=== PATIENT | female | born 1950 | race Caucasian/White ===

== ENCOUNTER → 2020-09-22 10:15 | Outpatient (CLI) | payer MEDICARE, SELFPAY ==
--- NOTE | 2020-09-22 11:02 | XR_ITS ---
PROCEDURE: XR CHEST 2V CLINICAL HISTORY: WEIGHT LOSS,EMPHYSEMA COMPARISON: No exams were available for comparison FINDINGS: The cardiomediastinal silhouette and pulmonary vascularity are within normal limits. COPD changes. Faint increased markings in the right lung base posteriorly suspicious for an area infiltrate. Approximately 50 percent wedging of T9 age indeterminate. Lumbar scoliosis convex left. IMPRESSION: Patchy infiltrate in the right lung base. Age indeterminate wedge compression changes of T9 Dictated by: Chris Mitchell MD 09/22/2020 11:41 Chris Mitchell MD in [place] 09/22/2020 11:41
[2020-09-22 11:13] LABS: Eosinophils % 1.2 % (0.1-12.0); Hematocrit 36.7 % (37.0-47.0); Hemoglobin 11.9 g/dL (12.2-16.2); Lymphocytes % 31.8 % (10-50); Mean Corpuscular HGB Conc 32.3 g/dL (31.8-35.4); Mean Corpuscular Hemoglobin 28.9 pg (27.0-31.2); Mean Corpuscular Volume 89.4 fl (81-99); Mean Platelet Volume 8.7 fl (7.4-10.4); Monocytes # 0.2 K/mm3 (0.1-1.0); Monocytes % 6.6 % (1.7-9.3); Neutrophils # 1.9 K/mm3 (1.8-7.8); Neutrophils % 59.4 % (37.0-80.0); Platelet Count 190 K/mm3 (142-424); Red Blood Count 4.11 M/mm3 (4.20-5.40); Red Cell Distribution Width 13.6 % (11.5-17.5); White Blood Count 3.3 K/mm3 (4.8-10.8)
[2020-09-22 12:11] LABS: Alanine Aminotransferase 5 U/L (12-78); Albumin/Globulin Ratio 1.5 (1.1-1.8); Alkaline Phosphatase 60 U/L (38-126); Anion Gap 5.4 mEq/L (5-15); Aspartate Amino Transferase 19 U/L (14-36); Bilirubin,Total 0.5 mg/dl (0.2-1.3); Blood Urea Nitrogen 17 mg/dl (7-17); Calcium 9.4 mg/dl (8.4-10.2); Carbon Dioxide 36 mmol/L (22.0-30.0); Chloride 102 mmol/L (98-107); Cholesterol 193 mg/dl (140-200); Estimated Glomerular Filt Rate 71 ml/min (>60); GFR (African American) 86 ML/MIN (>60); Globulin 2.7 g/dL (1.3-3.2); Glucose 83 mg/dl (74-100); HDL Cholesterol 65 mg/dl (40-60); Magnesium 2.3 mg/dl (1.6-2.3); Potassium 4.4 mmoL/L (3.5-5.1); Sodium 139 mmol/L (136-145); Total Protein,Serum 6.7 g/dl (6.3-8.2); Triglycerides 74 mg/dl (30-150); VLDL Cholesterol 15 mg/dL (0-40)
[2020-09-22 12:22] LABS: Direct LDL Cholesterol 98.22 mg/dL (100-129)
[2020-09-22 12:29] LABS: 25-OH Vitamin D, Total 15.8 ng/mL (30-100)
[2020-09-22 12:31] LABS: Free Thyroxine Index 2.7 ug/dL (5.93-13.13); T4 (Thyroxine) 8.3 ug/dl (5.53-11.0); Triiodothryronine (T3) Uptake 32 % (23.5-40.5)
[2020-09-22 12:44] LABS: Thyroid Stimulating Hormone 0.77 uIU/mL (0.465-4.68)
[2020-09-22 20:43] LABS: Vitamin B12 565 pg/mL (239-931)
== END ==
PROVIDERS: PCP Internal Medicine Adolescent Medicine; Visit Provider Internal Medicine Adolescent Medicine
DX: J43.1 Panlobular emphysema (principal); R63.4 Abnormal weight loss; E55.9 Vitamin D deficiency, unspecified; R74.8 Abnormal levels of other serum enzymes
CPT/HCPCS: 36415; 71046; 80053; 80061; 82306; 82607; 83735; 84436; 84443; 84479; 85025

== ENCOUNTER 2020-12-25 18:48 | Emergency (ER) | payer MEDICARE, SELFPAY ==
[2020-12-25 20:29] VITALS: BP 116/81; PULSE 68; RESP 20; TEMP 36.7; O2SAT 99
== END 2020-12-25 20:30 | disposition left against medical advice (07) ==
LOC: UTC 18:51 → ER 19:42
PROVIDERS: Emergency Provider Emergency Medicine; PCP Internal Medicine Adolescent Medicine
DX: Z53.21 Procedure and treatment not carried out due to patient leaving prior to being seen by health care provider (principal)
CPT/HCPCS: G0463; 99211

== ENCOUNTER 2020-12-26 12:27 | Emergency (ER) | payer MEDICARE, SELFPAY ==
[2020-12-26] VITALS (10 sets, daily range): BP systolic 86–110; BP diastolic 50–75; PULSE 66–88; RESP 16–22; TEMP 36.6–37; O2SAT 97–100; BMI 20.3
--- NOTE | 2020-12-26 12:51 | HMH.EDGENADL ---
ED Disposition Clinical Impression: COVID-19 virus infection Disposition: Home, Self-Care Condition on Discharge: Good Instructions: DI for COVID-19 (Suspected or Confirmed ) Additional Instructions: Tylenol for pain or fever. Rest and drink plenty of fluids. COVID-19 Isolation: Isolate yourself for a MINIMUM of 10 days: What to do: Monitor your symptoms. If you have an emergency warning sign (including trouble breathing), seek emergency medical care immediately. Stay in a separate room from other household members, if possible. Use a separate bathroom, if possible. Avoid contact with other members of the household and pets. Don?t share personal household items, like cups, towels, and utensils. Wear a mask when around other people if able. You can be around others AFTER: 10 days since symptoms first appeared AND 24 hours with no fever without the use of fever-reducing medications AND Other symptoms of COVID-19 are improving Referrals: Maulik Tapia MD [Primary Care Provider] - - Critical Care Critical Care Time: No Attestation: On 12/26/20, the high probability of a clinically significant, sudden or life threatening deterioration of the following system(s) required my full and direct attention, intervention and personal management. The time I documented below is in addition to time spent performing reported procedures but includes the following listed in this critical care notation. Medical Decision Making - Phong Inquiry Pt receiving controlled substance: No Vital Signs: 12/26/20 12:29 12/26/20 13:30 Temperature 98.6 F Temperature Source Oral Pulse Rate 70 Pulse Rate [Radial] 68 Respiratory Rate 22 17 Blood Pressure 96/60 L Blood Pressure [Right Arm] 90/50 L Blood Pressure Mean 66 Blood Pressure Mean [Right Arm] 63 Blood Pressure Position [Right Arm] Sitting 02 Sat by Pulse Oximetry 98 100 Oxygen Delivery Method Nasal Cannula Oxygen Flow Rate (LPM) 2 - Lab Data Lab Results 12/26/20 12:53: SARS-CoV-2 (PCR) Detected A, Influenza A Untype (PCR) Not detected, Influenza Type B (PCR) Not detected 12/26/20 13:33: WBC 3.8 L, RBC 4.37, Hgb 12.5, Hct 40.3, MCV 92.2, MCH 28.7, MCHC 31.1 L, RDW 12.6, Plt Count 191, MPV 7.5, Neut % (Auto) 68.7, Lymph % (Auto) 21.6, [place] % (Auto) 8.6, Eos % (Auto) 0.1, Baso % (Auto) 1.0, Neut # (Auto) 2.6, Lymph # (Auto) 0.8, [place] # (Auto) 0.3, Eos # (Auto) 0.0, Baso # (Auto) 0.0 Result diagrams: 12/26/20 13:33 Orders (Tests/Meds): ORDERS Category Date Time Status XR chest portable Stat Exams 12/26/20 13:09 Ordered Comprehensive Metabolic Panel Stat Lab 12/26/20 13:33 Received Lactic Acid Stat Lab 12/26/20 13:33 Received Blood Culture Stat Micro 12/26/20 13:33 Received Medical Decision Narrative: Discussed monoclonal antibody therapy with patient and son. They are agreeable. General Adult HPI - General Stated complaint: covid exposure,cough,fever,symptoms Time Seen by Provider: 12/26/20 12:51 - History of Present Illness HPI narrative: History obtained from patient's son. The patient has dementia. He states that she has been exposed to Covid, 3 persons in the household out of 7 have tested positive, and she has symptoms. He says for the past couple days she has had a cough with headaches, chest congestion, her lungs sound full , and a fever between 100 and 101 degrees. She has COPD and is on oxygen continuously. She uses an inhaler twice a day. She is treated for hypothyroidism. She does not have heart disease or diabetes. She is a former smoker. He states that she was here last night but walked out without getting tested because of her dementia. She has not been vaccinated against COVID-19. Son states we're not big on vaccines in our family . - Related Data Allergies Allergy/AdvReac Type Severity Reaction Status Date / Time Penicillins Allergy Verified 12/26/20 13:04 [facility] History
[2020-12-26 13:08] LABS: Influenza A, PCR Not Detected (NotDetected); Influenza B, PCR Not Detected (NotDetected)
--- NOTE | 2020-12-26 13:09 | XR_ITS ---
PROCEDURE: XR CHEST PORTABLE CLINICAL HISTORY: COUGH COMPARISON: CR XR CHEST 2V from 09/22/2020 FINDINGS: The cardiomediastinal silhouette and pulmonary vascularity are within normal limits. The lungs are clear without infiltrates, suspicious nodules, or pleural effusions. No acute bony abnormalities. IMPRESSION: No acute findings. Dictated by: Chris Mitchell MD 12/26/2020 15:57 Chris Mitchell MD in [place] 12/26/2020 15:57
[2020-12-26 13:36] LABS: Coronavirus 19, PCR Detected (NotDetected)
[2020-12-26 13:42] LABS: Eosinophils % 0.1 % (0.1-12.0); Hematocrit 40.3 % (37.0-47.0); Hemoglobin 12.5 g/dL (12.2-16.2); Lymphocytes # 0.8 K/mm3 (0.7-4.5); Lymphocytes % 21.6 % (10-50); Mean Corpuscular HGB Conc 31.1 g/dL (31.8-35.4); Mean Corpuscular Hemoglobin 28.7 pg (27.0-31.2); Mean Corpuscular Volume 92.2 fl (81-99); Mean Platelet Volume 7.5 fl (7.4-10.4); Monocytes # 0.3 K/mm3 (0.1-1.0); Monocytes % 8.6 % (1.7-9.3); Neutrophils # 2.6 K/mm3 (1.8-7.8); Neutrophils % 68.7 % (37.0-80.0); Platelet Count 191 K/mm3 (142-424); Red Blood Count 4.37 M/mm3 (4.20-5.40); Red Cell Distribution Width 12.6 % (11.5-17.5); White Blood Count 3.8 K/mm3 (4.8-10.8)
[2020-12-26 13:50] LABS: Chloride 102 mmol/L (98-107); Potassium 4.4 mmoL/L (3.5-5.1); Sodium 138 mmol/L (136-145)
[2020-12-26 13:52] LABS: Alanine Aminotransferase 12 U/L (12-78); Aspartate Amino Transferase 33 U/L (14-36); Blood Urea Nitrogen 17 mg/dl (7-17); Creatinine Clearance Estimated 42 mL/min (50-200); Estimated Glomerular Filt Rate 55 ml/min (>60); GFR (African American) 66 ML/MIN (>60); Lactic Acid 0.7 mmol/L (0.7-2.1)
[2020-12-26 13:53] LABS: Albumin/Globulin Ratio 1.3 (1.1-1.8); Alkaline Phosphatase 65 U/L (38-126); Anion Gap 11.4 mEq/L (5-15); Bilirubin,Total 0.2 mg/dl (0.2-1.3); Carbon Dioxide 29 mmol/L (22.0-30.0); Globulin 3.2 g/dL (1.3-3.2); Glucose 81 mg/dl (74-100); Total Protein,Serum 7.2 g/dl (6.3-8.2)
== END 2020-12-26 16:49 | disposition home or self-care (01) ==
PROVIDERS: Emergency Provider Emergency Medicine; PCP Internal Medicine Adolescent Medicine
DX: U07.1 COVID-19 (principal); J44.9 Chronic obstructive pulmonary disease, unspecified; Z99.81 Dependence on supplemental oxygen; E03.9 Hypothyroidism, unspecified; Z87.891 Personal history of nicotine dependence
CPT/HCPCS: 71045; 80053; 83605; 85025; 87040; 96365; 99283; C9803; U0003; U0005

== ENCOUNTER 2022-03-25 15:54 | Inpatient (IN) | payer MEDICARE, SELFPAY ==
[2022-03-25 16:28] VITALS: BP 138/53; PULSE 88; RESP 18; TEMP 37.6; O2SAT 92; BMI 20.5
--- NOTE | 2022-03-25 16:41 | XR_ITS ---
PROCEDURE INFORMATION: Exam: XR Chest Exam date and time: 03/25/2022 4:44 PM Age: 71 years old Clinical indication: Shortness of breath; Additional info: Jones TECHNIQUE: Imaging protocol: Radiologic exam of the chest. Views: 1 view. COMPARISON: CR XR CHEST PORTABLE 12/26/2020 1:20 PM FINDINGS: Lungs: Hazy airspace opacity in left lower lobe concerning for developing pneumonia. Pleural spaces: Unremarkable. No pleural effusion. No pneumothorax. Heart/Mediastinum: Unremarkable. No cardiomegaly. Bones/joints: Unremarkable. IMPRESSION: Hazy airspace opacity in left lower lobe concerning for developing pneumonia.
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
[2022-03-25 18:20] VITALS: PULSE 83; PULSE 84; RESP 16; O2SAT 85
--- NOTE | 2022-03-25 18:21 | ECG_ITS ---
APPROVED REPORT Exam: Resting ECG HR:89 bpm ECG Measurements Heart Rate 89 AXES [place] 173 P 74 QRSd 79 QRS 16 QT 339 T 36 QTc 386 Conclusion SINUS RHYTHM NORMAL ECG UNCONFIRMED REPORT Electronically signed by : Maulik Tapia MD 03/25/2022 20:15:06
[2022-03-25 18:40] VITALS: O2SAT 92
--- NOTE | 2022-03-25 18:48 | PC.NURSE ---
Pt instructed on d
--- NOTE | 2022-03-25 18:49 | PC.NURSE ---
Pt instructed on production of sputum but unable to produce specimen at this time. Cup at bedside. Pt also removed IV rac. New one placed to RFA.
[2022-03-25 19:36] LABS: Coronavirus 19, PCR Not Detected (NotDetected); Influenza A, PCR Not Detected (NotDetected); Influenza B, PCR Not Detected (NotDetected)
[2022-03-25 19:50] LABS: Basophils # 0.1 K/mm3 (0-0.2); Basophils % 0.5 % (0.1-2.0); Eosinophils # 0.1 K/mm3 (0.0-0.4); Eosinophils % 1.1 % (0.1-12.0); Hematocrit 35.3 % (37.0-47.0); Hemoglobin 11.2 g/dL (12.2-16.2); Lymphocytes # 1.1 K/mm3 (0.7-4.5); Lymphocytes % 10.2 % (10-50); Mean Corpuscular HGB Conc 31.8 g/dL (31.8-35.4); Mean Corpuscular Hemoglobin 28.7 pg (27.0-31.2); Mean Corpuscular Volume 90.4 fl (81-99); Mean Platelet Volume 7.4 fl (7.4-10.4); Monocytes # 0.4 K/mm3 (0.1-1.0); Monocytes % 3.4 % (1.7-9.3); Neutrophils # 9.1 K/mm3 (1.8-7.8); Neutrophils % 84.7 % (37.0-80.0); Platelet Count 342 K/mm3 (142-424); Red Blood Count 3.91 M/mm3 (4.20-5.40); Red Cell Distribution Width 13.3 % (11.5-17.5); White Blood Count 10.8 K/mm3 (4.8-10.8)
[2022-03-25 19:53] LABS: Chloride 99 mmol/L (98-107); Sodium 139 mmol/L (136-145)
[2022-03-25 19:56] LABS: Blood Urea Nitrogen 11 mg/dl (7-17); Calcium 8.7 mg/dl (8.4-10.2); Carbon Dioxide 32 mmol/L (22.0-30.0); Creatinine Clearance Estimated 41 mL/min (50-200); Estimated Glomerular Filt Rate 82 ml/min (>60); GFR (African American) 100 ML/MIN (>60); Glucose 81 mg/dl (74-100)
[2022-03-25 20:00] VITALS: BP 111/65; PULSE 86; RESP 18; TEMP 37.6; O2SAT 95
[2022-03-25 20:02] LABS: C-Reactive Protein 120.6 mg/L (0-4)
[2022-03-25 20:03] LABS: Anion Gap 10.9 mEq/L (5-15); Potassium 2.9 mmoL/L (3.5-5.1)
[2022-03-25 20:06] LABS: Lactic Acid 0.9 mmol/L (0.7-2.1)
--- NOTE | 2022-03-25 20:06 | PC.NURSE ---
03/25/222005 pts son was called regarding pt confused and requesting a phone to call her son, pt confused to place and time, attempting to pull at iv's and getting out of bed. son spoke with pt on the phone, son then asked if we could get her some ativan ordered, son stated that they told him earlier in the day that pt could get some ativan ordered, dr goldberg was called and asked per son request, no new orders for ativan at this time given due to pt with respiratory issues.
[2022-03-25 20:42] LABS: Mycoplasma Pneumo IGM (Rapid) Non-Reactive (Non-Reactiv)
[2022-03-26] VITALS: BP 109/63; PULSE 81; RESP 17; TEMP 36.7; O2SAT 92
[2022-03-26 03:27] VITALS: BP 120/74; PULSE 84; RESP 18; TEMP 36.9; O2SAT 94
--- NOTE | 2022-03-26 04:27 | PC.NURSE ---
pt in no acute distress, no changes from previous assessment, vss, lung sounds diminished, 02 sats 94% on 2L 02 pnc, pt is alert to self, pt is confused to place and time, pt with bed alarm in use, pt attempts to ambulate on own several times, no other issues or concerns at this time, pt still has non productive cough
[2022-03-26 05:27] VITALS: BMI 21.2
[2022-03-26 06:45] LABS: Chloride 106 mmol/L (98-107); Sodium 139 mmol/L (136-145)
[2022-03-26 06:46] LABS: Potassium 4.1 mmoL/L (3.5-5.1)
[2022-03-26 06:49] LABS: Anion Gap 5.1 mEq/L (5-15); Blood Urea Nitrogen 6 mg/dl (7-17); Calcium 8.2 mg/dl (8.4-10.2); Carbon Dioxide 32 mmol/L (22.0-30.0); Creatinine Clearance Estimated 42 mL/min (50-200); Estimated Glomerular Filt Rate 121 ml/min (>60); GFR (African American) 147 ML/MIN (>60); Glucose 114 mg/dl (74-100)
--- NOTE | 2022-03-26 07:30 | HMH.PHAINT1 ---
Pharmacy Intervention Comments: MEDICATION RECONCILIATION COMPLETED ON PATIENT USING EXTERNAL FILL HISTORY FROM PHARMACY. -STEVE NARAYAN, TRIPPD
[2022-03-26 08:00] VITALS: BP 99/63; PULSE 66; RESP 16; TEMP 36.5; O2SAT 98
--- NOTE | 2022-03-26 08:44 | PC.NURSE ---
Attempted to collect sputum but patient unable to produce at this time; specimen cup at bedside
[2022-03-26 08:52] LABS: Benzodiazepines Screen,Urine Negative ng/ml (<200)
[2022-03-26 08:53] LABS: Amphetamine/Metha Screen,Urine Negative ng/ml (<1000)
[2022-03-26 08:54] LABS: Barbiturates Screen,Urine Negative ng/ml (<200); Cannabinoid Screen,Urine Negative ng/ml (<50)
[2022-03-26 08:55] LABS: Cocaine Screen,Urine Negative ng/ml (<300)
[2022-03-26 08:56] LABS: Methadone Screen,Urine Negative ng/ml (<300); Opiate Screen,Urine Negative ng/ml (<300)
[2022-03-26 08:57] LABS: Phencyclidine Screen,Urine Negative ng/ml (<25)
--- NOTE | 2022-03-26 09:10 | EXP.ACUTE.PN ---
Subjective *Date: 03/26/22 *Time: 09:10 Interval history: Patient did fairly well overnight. Admission labs showed hypokalemia and she was given oral potassium and potassium containing fluids overnight and her potassium is now normal. She is breathing well. She has no complaints but is fairly demented. Medical Exam Vital signs and Labs for Last 24 Hours: Vital Signs Temp Pulse Pulse Resp BP Pulse Ox FiO2 03/26/22 08:00 2 03/26/22 03:27 98.5 F 84 18 120/74 94 L 03/25/22 18:40 92 L 03/25/22 20:00 95 03/26/22 00:00 98.1 F 81 17 109/63 L 92 L 03/25/22 20:00 99.6 F 86 18 111/65 95 03/25/22 18:20 84 16 03/25/22 18:20 84 03/25/22 18:20 83 03/25/22 18:20 85 L 03/25/22 16:28 99.6 F 88 18 138/53 L 92 L Intake and Output 03/25/22 03/26/22 03/26/22 19:59 03:59 11:59 Intake Total 240 / 1841 120 / 1841 1481 / 1841 Output Total 0 / 400 400 / 400 Balance 240 / 1441 120 / 1441 1081 / 1441 Intake: Intake, Oral Amount 240 / 360 120 / 360 Intake, Total IV Amount 1481 / 1481 D5W/0.45% NaCl w/40mEq KCl 1, 1481 / 1481 000 ml @ 125 mls/hr IV .Q8H [facility] Rx#:[id number] Output: Output, Urine Amount 0 / 400 400 / 400 Other: Number of Voids 1 Number of Unmeasured Voids 1 Weight 112 lb 1 oz 115 lb Patient Weight 03/26/22 11:59 Weight 115 lb Laboratory Results - last 24 hr 03/25/22 19:27: Lactate 0.9 03/25/22 19:27: WBC 10.8, RBC 3.91 L, Hgb 11.2 L, Hct 35.3 L, MCV 90.4, MCH 28.7, MCHC 31.8, RDW 13.3, Plt Count 342, MPV 7.4, Neut % (Auto) 84.7 H, Lymph % (Auto) 10.2, [place] % (Auto) 3.4, Eos % (Auto) 1.1, Baso % (Auto) 0.5, Neut # (Auto) 9.1 H, Lymph # (Auto) 1.1, [place] # (Auto) 0.4, Eos # (Auto) 0.1, Baso # (Auto) 0.1 03/25/22 19:27: Sodium 139, Potassium 2.9 L*, Chloride 99, Carbon Dioxide 32 H, Anion Gap 10.9, BUN 11, Creatinine 0.70, Estimated Creat Clear 41, Estimated GFR 82, Est GFR ( Amer) 100, Glucose 81, Calcium 8.7, C-Reactive Protein 120.6 H 03/25/22 19:27: Mycoplasma pneumon IgM Non-reactive 03/25/22 19:27: SARS-CoV-2 (PCR) Not detected, Influenza A Untype (PCR) Not detected, Influenza Type B (PCR) Not detected 03/26/22 06:07: Sodium 139, Potassium 4.1 D, Chloride 106, Carbon Dioxide 32 H, Anion Gap 5.1, BUN 6 L D, Creatinine 0.50 L D, Estimated Creat Clear 42, Estimated GFR 121, Est GFR ( Amer) 147 D, Glucose 114 H D, Calcium 8.2 L 03/26/22 08:35: Urine Opiates Screen Negative, Urine Methadone Screen Negative, Ur Barbituates Screen Negative, Ur Phencyclidine Scrn Negative, Ur Amphetamines Screen Negative, U Benzodiazepines Scrn Negative, Urine Cocaine Screen Negative, U Marijuana (THC) Screen Negative I & O for Labs for Last 24 Hours: Intake & Output 03/23/22 03/24/22 03/25/22 03/26/22 11:59 11:59 11:59 11:59 Intake Total 1841 / 1841 Output Total 400 / 400 Balance 1441 / 1441 Weight 115 lb Comment:: Resting comfortably. Lungs have fairly good air entry bilaterally. Continues have crackles in the right base. Heart rate regular. Skin turgor is improving. Assessment and Plan *Assessment and plan (1) Community acquired pneumonia: Status: Acute Category: Medical Code(s): J18.9 - Pneumonia, unspecified organism (2) Dehydration: Status: Acute Category: Medical Code(s): E86.0 - Dehydration (3) Hypothyroidism (acquired): Status: Acute Category: Medical Code(s): E03.9 - Hypothyroidism, unspecified (4) Senile dementia: Status: Acute Category: Medical Code(s): F03.90 - Unspecified dementia, unspecified severity, without behavioral disturbance, psychotic disturbance, mood disturbance, and anxiety (5) Panlobular emphysema: Status: Acute Category: Medical Code(s): J43.1 - Panlobular emphysema (6) Hypokalemia: Status: Acute Category: Medical Code(s):
[2022-03-26 10:58] VITALS: BMI 21.1
--- NOTE | 2022-03-26 11:37 | HMH.OTEV ---
OT Inpatient Evaluation Rehab OT IP Evaluation Start: 03/26/22 08:11 Freq: ONCE Status: Active Protocol: Document 03/26/22 11:28 CURTIS (Rec: 03/26/22 11:37 FORRESTKATHY [id number]) Rehab OT IP Assessment Subjective History Patient has had 1 to 2 weeks of cough and congestion. Has been seen at the [place] emergency department with acute bronchopneumonia, was given a macrolide antibiotics. Flu and COVID testing was negative, was hypotensive but encouraged to do p.o. fluids and was discharged home. She is not much better, appeared at my office today for an appointment, found to have 84% O2 saturation on room air, blood pressure in the low 100s, with 1 pound weight loss in the past week per my scales and crackles in the left middle lung field. Admitted to hospital for community-acquired pneumonia with failed outpatient therapy . Patient lives at home with son . Patient independent with ADLs and fx'l mobility prior to hospitalization. Subjective I can get up. Patient completed LB drsg at [facility] I. Patient completed transfers, ambulation and bed mobility I. Objective Patient Orientation Person,Name,Year Upper Extremity Gross ROM WFL Bed Mobility bed mobility - supine/sit Assist Level Independent Transfer Training Sit/Stand/Pivot Transfer Assist Level Independent Chair Transfer Ability Independent Chair Transfer Technique Sit to/from Ambulatory Rehab OT IP prob,goals,plan Problems Date of Evaluation: 03/26/22 Rehab Potential Rehab Potential Innapropriate for Skilled Therapy Discharge Plan OT Discharge Plan Patient appears to be at baseline. d/c to home with son after medical d/c from [facility]. Eval Complexity Eval Charge Cod
--- NOTE | 2022-03-26 11:39 | HMH.PTEV ---
Physical Therapy Evaluation Rehab PT IP Evaluation Start: 03/26/22 08:10 Freq: ONCE Status: Active Protocol: Document 03/26/22 09:10 JOSE (Rec: 03/26/22 11:39 PHOCLARIBEL [id number]) Subjective/History History History 71 yowf adm to [facility] with PNA. She reports she lives with son , 1-2 steps to enter the home, and she is generally independent with all mobility without an AD. Subjective Subjective Currently she has no c/o. Rehab PT IP Eval Objective Appearance Patient Behavior Appropriate Patient Orientation Person,Place Difficulty following instructions none Speech Pattern Clear Ambulation Patient Able to Ambulate Yes Ambulation Observation IP General Gait Pattern Observation No Deviations/Normal Ambulation Distance (feet) 75 Ambulation Assistive Device None Ambulation Ability Independent Balance Ability to Arise Able, uses arms to help Sitting Balance Steady, safe Standing Balance Narrow stance w/o support Dynamic Sitting Balance Ability Good Dynamic Standing Balance Ability Good Transfers Bed Transfer Ability Independent Chair Transfer Ability Independent Sit to Stand Bed Transfer Ability Independent Sit to Stand Chair Transfer Ability Independent ROM All Extremities PT ROM Status WFL MMT All Extremities PT MMT WFL Rehab PT IP prob,goals,plan Problems Date of Evaluation: 03/26/22 Discharge Plan PT Discharge Plan Pt is currently independent with all mobility and ambulation. No current inpatient therapy needs. G -code Required No Eval Complexity Eval Charge Codes 47054 - Moderate Complexity PHYSICIAN CERTIFICATION: I certify the specified therapy services for Leticia Castillo are required, authorized, and reviewed every 30 days.
--- NOTE | 2022-03-26 11:41 | HMH.OTEV ---
OT Inpatient Evaluation Rehab OT IP Evaluation Start: 03/26/22 08:11 Freq: ONCE Status: Active Protocol: Document 03/26/22 11:28 CURTIS (Rec: 03/26/22 11:37 FORRESTKATHY [id number]) Rehab OT IP Assessment Subjective History Patient has had 1 to 2 weeks of cough and congestion. Has been seen at the [place] emergency department with acute bronchopneumonia, was given a macrolide antibiotics. Flu and COVID testing was negative, was hypotensive but encouraged to do p.o. fluids and was discharged home. She is not much better, appeared at my office today for an appointment, found to have 84% O2 saturation on room air, blood pressure in the low 100s, with 1 pound weight loss in the past week per my scales and crackles in the left middle lung field. Admitted to hospital for community-acquired pneumonia with failed outpatient therapy . Patient lives at home with son . Patient independent with ADLs and fx'l mobility prior to hospitalization. Subjective I can get up. Patient completed LB drsg at [facility] I. Patient completed transfers, ambulation and bed mobility I. Objective Patient Orientation Person,Name,Year Upper Extremity Gross ROM WFL Bed Mobility bed mobility - supine/sit Assist Level Independent Transfer Training Sit/Stand/Pivot Transfer Assist Level Independent Chair Transfer Ability Independent Chair Transfer Technique Sit to/from Ambulatory Rehab OT IP prob,goals,plan Problems Date of Evaluation: 03/26/22 Rehab Potential Rehab Potential Innapropriate for Skilled Therapy Discharge Plan OT Discharge Plan Patient appears to be at baseline. d/c to home with son after medical d/c from [facility] [place]. Eval Complexity Eval Charge Cod
[2022-03-26 12:00] VITALS: BP 155/90; PULSE 88; RESP 16; TEMP 36.3; O2SAT 91
--- NOTE | 2022-03-26 15:08 | CARE MANAGER ---
Attempted multiple times to reach son today. Left message on his VM, but he has not called back. Number on chart was attempted first and patient's daughter answered and gave me son's number...[phone], which is where I left the message.
[2022-03-26 16:00] VITALS: BP 145/93; PULSE 101; RESP 20; TEMP 36.3; O2SAT 92
--- NOTE | 2022-03-26 18:49 | PC.NURSE ---
Pt is alert to self. She's been very restless and anxious throughout the shift. She's ambulated in the halls with assist x1 and tolerated well. She keeps requesting to see her who has previously. She removed her IV in the am, new IV placed to right wrist and wrapped with coban to encourage patient to leave alone. Appetite has been poor with her refusing all meals. Her son was notified of patients restlessness and agitation. He stated he would be in later to see her. Dr Tapia notified. 0.5 mg of risperdol x1 ordered and administered with no results. Dr Tapia called to check on patient and notified of result. 25 mg of seroquel po x1 ordered. Will fax order to pharmacy. Pt is currently sitting at the nurses station talking with RN's.
[2022-03-26 20:00] VITALS: BP 120/91; PULSE 110; RESP 20; TEMP 36.7; O2SAT 93
[2022-03-27] VITALS (7 sets, daily range): BP systolic 107–126; BP diastolic 67–81; PULSE 62–102; RESP 16–22; TEMP 36.7–37.6; O2SAT 91–97; BMI 21.3
--- NOTE | 2022-03-27 07:00 | PC.NURSE ---
Pt A/Ox1. Pt lucero been pleasantly confused t/o shift. Pt sat with nursing staff at nurse station at beginning of shift. Pt became tired and agreed to go to her room to sleep. Pt slept majority of night. Updated son (Wolfgang) on pt care. He stated he was not able to make it last tonight but would come today. Also states concern about pt not eating. Pt had no c.o voiced to staff. Ambulates to BR and in hallway with standby assist. Call light within reach. Bed alarm in place for pt safety.
[2022-03-27 08:20] LABS: Basophils # 0.1 K/mm3 (0-0.2); Eosinophils # 0.1 K/mm3 (0.0-0.4); Eosinophils % 1.9 % (0.1-12.0); Hematocrit 37.3 % (37.0-47.0); Lymphocytes % 15.9 % (10-50); Mean Corpuscular HGB Conc 32.1 g/dL (31.8-35.4); Mean Corpuscular Hemoglobin 28.4 pg (27.0-31.2); Mean Corpuscular Volume 88.4 fl (81-99); Mean Platelet Volume 7.9 fl (7.4-10.4); Monocytes # 0.3 K/mm3 (0.1-1.0); Monocytes % 4.8 % (1.7-9.3); Neutrophils % 76.5 % (37.0-80.0); Platelet Count 406 K/mm3 (142-424); Red Blood Count 4.22 M/mm3 (4.20-5.40); Red Cell Distribution Width 13.7 % (11.5-17.5); White Blood Count 6.6 K/mm3 (4.8-10.8)
[2022-03-27 08:36] LABS: Blood Urea Nitrogen 5 mg/dl (7-17); Calcium 9.2 mg/dl (8.4-10.2); Carbon Dioxide 31 mmol/L (22.0-30.0); Chloride 106 mmol/L (98-107); Creatinine Clearance Estimated 42 mL/min (50-200); Estimated Glomerular Filt Rate 82 ml/min (>60); GFR (African American) 100 ML/MIN (>60); Glucose 101 mg/dl (74-100); Sodium 144 mmol/L (136-145)
--- NOTE | 2022-03-27 09:38 | EXP.ACUTE.PN ---
Subjective *Date: 03/27/22 *Time: 09:38 Interval history: Overnight patient did well from a respiratory standpoint. She is not requiring oxygen. PT and OT evaluation was good with no need for skilled rehabilitation services. She has been extremely anxious and has been wandering around the nursing unit and is actually tried to leave a couple of times. Her son was contacted and stated that he would come in and be with her but he has not appeared as of yet after 24 hours of notification. We gave her Seroquel last night and nursing staff reported the seem to help her little bit as far as getting some sleep but it certainly did not over sedate her. This morning she does know that I am her doctor which is an improvement over yesterday. She has no complaints of pain and is eating breakfast fairly well. Medical Exam Vital signs and Labs for Last 24 Hours: Vital Signs Temp Pulse Resp BP Pulse Ox 03/27/22 08:00 98.2 F 102 H 18 126/79 91 L 03/27/22 04:00 98.0 F 94 H 22 126/72 94 L 03/27/22 00:00 98.3 F 93 H 20 116/70 95 03/26/22 20:00 110 H 93 L 03/26/22 20:00 98.0 F 110 H 20 120/91 H 93 L 03/26/22 16:00 97.4 F L 101 H 20 145/93 H 92 L 03/26/22 12:00 97.4 F L 88 16 155/90 H 91 L Intake and Output 03/26/22 03/27/22 03/27/22 19:59 03:59 11:59 Intake Total 510 / 630 0 / 630 120 / 630 Output Total 0 / 300 300 / 300 Balance 510 / 330 0 / 330 -180 / 330 Intake: Intake, Oral Amount 360 / 480 0 / 480 120 / 480 Intake, Total IV Amount 150 / 150 Levofloxacin/D5w 750 mg/150 ml 150 / 150 750 mg In 150 ml @ 100 mls/hr IV Q24H [facility] Rx#:[id number] Output: Output, Urine Amount 0 / 300 300 / 300 Other: Number of Unmeasured Voids 1 0 Weight 115 lb 15.41 oz Patient Weight 03/27/22 11:59 Weight 115 lb 15.41 oz Laboratory Results - last 24 hr 03/27/22 08:09: WBC 6.6 D, RBC 4.22, Hgb 12.0 L, Hct 37.3, MCV 88.4, MCH 28.4, MCHC 32.1, RDW 13.7, Plt Count 406, MPV 7.9, Neut % (Auto) 76.5, Lymph % (Auto) 15.9, Pettis % (Auto) 4.8, Eos % (Auto) 1.9, Baso % (Auto) 1.0, Neut # (Auto) 5.0, Lymph # (Auto) 1.0, Pettis # (Auto) 0.3, Eos # (Auto) 0.1, Baso # (Auto) 0.1 03/27/22 08:09: Sodium 144, Potassium 4.0, Chloride 106, Carbon Dioxide 31 H, Anion Gap 11.0, BUN 5 L, Creatinine 0.70 D, Estimated Creat Clear 42, Estimated GFR 82, Est GFR ( Amer) 100 D, Glucose 101 H, Calcium 9.2 I & O for Labs for Last 24 Hours: Intake & Output 03/24/22 03/25/22 03/26/22 03/27/22 11:59 11:59 11:59 11:59 Intake Total 1961 / 1961 630 / 630 Output Total 1000 / 1000 300 / 300 Balance 961 / 961 330 / 330 Weight 114 lb 10.246 oz 115 lb 15.41 oz Comment:: Appears frail, disoriented but able to carry on a fairly reasonable conversation with good air good eye contact. Does not appear as dry as admission. Rhonchi and both lung moreau but clearing. Heart rate regular. Abdomen soft, no extremity clubbing or edema. Neurologically has global weakness but no focal deficits. Assessment and Plan *Assessment and plan (1) Community acquired pneumonia: Status: Acute Category: Medical Code(s): J18.9 - Pneumonia, unspecified organism (2) Dehydration: Status: Acute Category: Medical Code(s): E86.0 - Dehydration (3) Hypothyroidism (acquired): Status: Acute Category: Medical Code(s): E03.9 - Hypothyroidism, unspecified (4) Senile dementia: Status: Acute Category: Medical Code(s): F03.90 - Unspecified dementia, unspecified severity, without behavioral disturbance, psychotic disturbance, mood disturbance, and anxiety (5) Panlobular emphysema: Status: Acute Category: Medical Code(s): J43.1 - Panlobular emphysema (6) Hypokalemia: Status: Acute Category: Medical Code(s): E87.6 - Hypokalemia Plan 1. Community-acquired pneumonia-failed outpatient therapy. Ad
--- NOTE | 2022-03-27 16:20 | PC.NURSE ---
pt has been pleasant this shift. alert to self, lungs diminished. pt required o2 on 2l once today because of sats at 89%. sats now 94-95% RA. pt started to become agitated, redirected and reassured pt, assisted to bed, pt now resting comfortably in bed. cb and personal items within reach, no concerns at this time.
[2022-03-28 04:00] VITALS: BP 92/62; PULSE 85; RESP 18; TEMP 36.9; O2SAT 95
--- NOTE | 2022-03-28 06:09 | PC.NURSE ---
PT HAS BEEN RESTING QUIETLY. PLEASANTLY CONFUSED. PT CURRENTLY ON 2 L NC. BED ALARM ON FOR SAFETY. NO NEEDS OR COMPLAINTS VOICED BY PT AT THIS TIME. CALL LIGHT IN REACH.
--- NOTE | 2022-03-28 06:50 | PC.NURSE ---
ATTEMPTED PT ON RA, PT O2 SAT ON RA IS MID 80S. 2 L NC REAPPLIED. O2 NOW 91%.
[2022-03-28 08:00] VITALS: BP 91/53; PULSE 91; RESP 20; TEMP 36.4; O2SAT 93
--- NOTE | 2022-03-28 08:44 | EXP.DC.SUM ---
General Admission date:: 03/25/22 Discharge date: 03/28/22 HPI HPI HPI: Patient has had 1 to 2 weeks of cough and congestion. Has been seen at the [place] emergency department with acute bronchopneumonia, was given a macrolide antibiotics. Flu and COVID testing was negative, was hypotensive but encouraged to do p.o. fluids and was discharged home. She is not much better, appeared at my office today for an appointment, found to have 84% O2 saturation on room air, blood pressure in the low 100s, with 1 pound weight loss in the past week per my scales and crackles in the left middle lung field. Admitted to hospital for community-acquired pneumonia with failed outpatient therapy. Hospital Course Hospital Course Hospital Course: Patient was admitted to hospital. Given IV fluids and IV Levaquin. Did well with this and felt much better. Able to ambulate around the hospital with no problems. Dehydration resolved and hypokalemia was replaced and normalized. She continued to be demented and had some issues with some agitation and insomnia. Seroquel did not seem to do much, she was tried on clonazepam which did seem to help. There is a lot of social issues swirling around patient's care at this point-her daughter who was her component lab tech has been arrested for elder abuse allegations and emergency guardianship has been given to her son, Mr. Hi Frey. He has been little difficult to contact but has told the nurses that he does not wish her placed which was not the feeling he gave us on admission. Regardless, she did not meet criteria for inpatient skilled care and she seems to be doing well with eating and moving around. Plan will be to discharge her home with Levaquin prescription. She will continue her thyroid medicine, I will do clonazepam point 5 at night for sleep and we will follow her up in my office as scheduled. Exam Data for Last 24 hours Vital signs and Labs for Last 24 Hours: Temp Pulse Resp BP Pulse Ox FiO2 98.4 F 85 18 92/62 L 95 2 03/28/22 04:00 03/28/22 04:00 03/28/22 04:00 03/28/22 04:00 03/28/22 04:00 03/26/22 08:00 I & O for Last 24 hours: Intake & Output 03/25/22 03/26/22 03/27/22 03/28/22 11:59 11:59 11:59 11:59 Intake Total 1960 / 1960 630 / 630 180 / 180 Output Total 1000 / 1000 300 / 300 700 / 700 Balance 961 / 961 330 / 330 -520 / -520 Weight 114 lb 10.246 oz 115 lb 15.41 oz Constitutional Constitutional: no acute distress and thin *Routine HEENT Exam Head: Present normocephalic Eye: Present EOMI and PERRL ENT: Present mucous membranes moist *Routine Neck Exam Neck: Present supple; Absent lymphadenopathy *Routine Respiratory Exam Respiratory: Present rhonchi and able to speak in complete sentences Comments: No crackles. Much better air entry than on admission *Routine Cardiovascular Exam Cardiovascular: Present RRR *Routine Abdominal Exam Abdominal: Present soft and normoactive bowel sounds; Absent tenderness *Routine Extremities Exam Extremities: Absent cyanosis, clubbing or edema *Routine Skin Exam Skin: Present warm; Absent rash *Routine Neurological Exam Neurological: Present alert, CN II-XII intact and moving all extremities Comments: See PT evaluation. Disoriented to place and time, but at baseline DS: Diagnosis Discharge Diagnosis (1) Community acquired pneumonia: Status: Acute (2) Dehydration: Status: Acute (3) Hypothyroidism (acquired): Status: Acute (4) Senile dementia: Status: Acute (5) Panlobular emphysema: Status: Acute (6) Hypokalemia: Status: Acute Meds Home Medications and Allergies Home Medications Medication Instructions Recorded Confirmed Type levothyroxine 88 mcg tablet 88 mcg PO DAILY THYROID 03/25/22 03/25/22 History albuterol sulfate 90 mcg/actuation 1 puff inhalation Q4HP PRN 03/26/22 03/26/22 History aerosol inhaler Shortness Of Breath benzonatate 100 mg capsule 100 mg PO TIDP
[2022-03-28 09:10] VITALS: O2SAT 86
--- NOTE | 2022-03-28 09:31 | PC.NURSE ---
room air saturation 86% at rest
--- NOTE | 2022-03-29 14:08 | CARE MANAGER ---
Called and spoke to patient's son, who states patient is doing well. Hasn't been able to warehouse order picker medication due to not being ready at pharmacy. I called and spoke to pharmacy, and was told they are filling them now. Son notified that pharmacy is filling and that he should pick them up today. No known needs at time of call.
== END 2022-03-28 11:00 | disposition home or self-care (01) | DRG 195 ==
PROVIDERS: Family Medicine; Admitting Provider Internal Medicine Adolescent Medicine; PCP Internal Medicine Adolescent Medicine; Visit Provider Internal Medicine Adolescent Medicine
DX: J18.9 Pneumonia, unspecified organism (principal); Z87.891 Personal history of nicotine dependence; E03.9 Hypothyroidism, unspecified; F03.90 Unspecified dementia, unspecified severity, without behavioral disturbance, psychotic disturbance, mood disturbance, and anxiety; J43.1 Panlobular emphysema; E87.6 Hypokalemia
CPT/HCPCS: G0379; 36415; 71045; 80048; 80305; 83605; 85025; 86140; 86738; 93005; 94640; 94760; 97162; 97165; C9803; J1956; U0003; U0005